=== PATIENT | male | born 1990 | race Caucasian/White ===

== ENCOUNTER 2017-06-22 21:02 | Emergency (ER) | payer SELFPAY ==
[2017-06-22] MEDS ORDERED: NORMAL SALINE 1000 ML 1,000 ML IV ONE (21:42)
[2017-06-22] MEDS ORDERED: DIAZEPAM INJ 10 MG/2 ML DISP.SYRIN IV ONE (21:44)
--- NOTE | 2017-06-22 21:45 | ER Document Report ---
ED General - General Chief Complaint: Probable Seizure Stated Complaint: ALTERED MENTAL STATUS Time Seen by Provider: 06/22/17 21:09 Notes: Patient is a 26-year-old male with a past medical history of polysubstance abuse currently uses kratom daily who presents after having a witnessed generalized tonic-clonic seizure just prior to arrival. Patient was apparently speaking to his significant other when he became confused, and had generalized shaking. He did not injure himself when he landed on the ground. He arrives somewhat postictal, apparently initially combative for EMS but calm down in route to the hospital. On arrival, patient states he does not know what happened, denies having any prodromal symptoms prior to this event. He states that he has been taking large doses of kratom daily for at least the past 2 years and has withdrawal symptoms when he tries to stop this medicine. He has used the same dose today as he has usually used. He does also admit to intermittent Xanax abuse but states that he has not used in at least 4 days and generally does not use more than 1-2 times per week. No obvious additional triggers or today's episode. He has no prior history of seizures. He denies any focal weakness, numbness, headache, neck pain, or altered mental status. He denies any recent infectious symptoms or fever. TRAVEL OUTSIDE OF THE [place] IN LAST 30 DAYS: No - Related Data Allergies/Adverse Reactions: No Known Allergies Allergy (Verified 08/14/14 01:19) Past Medical History - General Information source: Patient - Social History Smoking Status: Current Every Day Smoker Frequency of alcohol use: Occasional Drug Abuse: Other Lives with: Spouse/Significant other Family History: Reviewed & Not Pertinent - Immunizations Hx Diphtheria, Pertussis, Tetanus Vaccination: Yes Review of Systems - Review of Systems Notes: Constitutional: Negative for fever. HENT: Negative for sore throat. Eyes: Negative for visual changes. Cardiovascular: Negative for chest pain. Respiratory: Negative for shortness of breath. Gastrointestinal: Negative for abdominal pain, vomiting or diarrhea. Genitourinary: Negative for dysuria. Musculoskeletal: Negative for back pain. Skin: Negative for rash. Neurological: Negative for headaches, weakness or numbness. 10 point ROS negative except as marked above and in HPI. Physical Exam - Vital signs Vitals: Resp 17 06/22/17 21:06 Interpretation: Normal Notes: PHYSICAL EXAMINATION: GENERAL: Well-appearing, well-nourished and in no acute distress. HEAD: Atraumatic, normocephalic. EYES: Pupils equal round and reactive to light, extraocular movements intact, sclera anicteric, conjunctiva are normal. ENT: nares patent, oropharynx clear without exudates. Moist mucous membranes. NECK: Normal range of motion, supple without lymphadenopathy LUNGS: Breath sounds clear to auscultation bilaterally and equal. No wheezes rales or rhonchi. HEART: Regular rate and rhythm without murmurs ABDOMEN: Soft, nontender, normoactive bowel sounds. No guarding, no rebound. No masses appreciated. EXTREMITIES: Normal range of motion, no pitting or edema. No cyanosis. NEUROLOGICAL: Face symmetric. Tongue protrudes midline. Extraocular motions intact. Pupils are 2 mm and equally reactive. Normal speech, normal gait. 5 out of 5 strength in both the distal and proximal upper and lower extremities bilaterally. Sensation is grossly intact throughout. Finger to nose testing normal. Pronator drift normal. PSYCH: Normal mood, normal affect. SKIN: Warm, Dry, normal turgor, no rashes or lesions noted. Course - Re-evaluation Re-evalutation: 06/22/17 21:44 Patient presents after having a generalized tonic-clonic seizure likely secondary to his chronic use of a drug product known as "kratom". Patient states he uses a 3-4 times daily and has used it 3 times a day. This drug is known to cause seizures with frequent use and patient has no other obvious triggers for seizure today. He has not had any recent head trauma, denies any infectious symptoms to suggest an acute meningitis or encephalitis, and although he does abuse benzodiazepines states he has not used any benzos with the past 4-5 days and usually only uses 1-2 mg of Xanax at most per week. I think it is unlikely that he would have an acute benzodiazepine withdrawal seizure especially because he is not exhibiting any additional withdrawal symptoms of benzodiazepines here in the emergency department. A CT the head has been obtained given that this was patient's first seizure to evaluate for any evidence of a structural abnormality or intracranial bleed. 06/22/17 22:17 CT the head unremarkable. Patient has not had any additional episodes of seizures. This is consistent with a kratom induced seizure. I have encouraged cessation of this drug use and I have encouraged the patient to seek rehab. Patient also does admit to chronic depression and anxiety and have encouraged him to seek actual medical therapy for this condition as opposed to continuing to try to use illicit substances to manage his symptoms. At this time will discharge with return precautions and follow-up recommendations. Verbal discharge instructions given a the bedside and opportunity for questions given. Medication warnings reviewed. Patient is in agreement with this plan and has verbalized understanding of return precautions and the need for primary care follow-up in the next 24-72 hours. - Vital Signs Vital signs: Temp Pulse Resp BP Pulse Ox 98.4 F 18 134/80 H 97 06/22/17 21:19 06/22/17 22:05 06/22/17 22:05 06/22/17 22:04 - Diagnostic Test Radiology reviewed: Image reviewed, Reports reviewed Radiology results interpreted by me: 06/22/17 22:17 CT head: No acute intracranial bleed or mass Discharge - Discharge Clinical Impression: Seizure, kratom abuse Condition: Good Disposition: HOME, SELF-CARE Additional Instructions: Today you had a seizure. It is very important that you do not engage in any activities that could result in severe injury should you have a seizure. Specifically, do not drive a vehicle, go into a body of water, take a bath, climb ladders, or operate any heavy machinery until you have been cleared by your neurologist. Your seizure was likely due to your use of kratom. Please discontinue using this drug. Please return to the ED immediately if you have multiple seizures close together, develop a severe headache, weakness, numbness , difficulty speaking, have a seizure in which you do not return to normal within 1 hour of the seizure, or have any other symptoms that are concerning to you. Forms: Return to Work
--- NOTE | 2017-06-22 22:06 | RADIOLOGY REPORT (SQ) ---
EXAM DESCRIPTION: CT HEAD WITHOUT COMPLETED DATE/TIME: 06/22/2017 9:53 pm REASON FOR STUDY: seizure COMPARISON: None. TECHNIQUE: Axial images acquired through the brain without intravenous contrast. Images reviewed wi th bone, brain and subdural windows. Images stored on PACS. All CT scanners at this facility use dose modulation, iterative reconstruction, and/or weight based d osing when appropriate to reduce radiation dose to as low as reasonably achievable (ALARA). [facility]: Dose Right [facility]: CareDose [facility]: Dose Right [facility]: Teradose 4D [facility]: [facility] [employer] RADIATION DOSE: CT Rad equipment meets quality standard of care and radiation dose reduction techniq ues were employed. CTDIvol: 64.6 mGy. DLP: 1292 mGy-cm. mGy. LIMITATIONS: None. FINDINGS: VENTRICLES: Normal size and contour. CEREBRUM: No masses. No hemorrhage. No midline shift. No evidence for acute infarction. Normal gra y/white matter differentiation. No areas of low density in the white matter. CEREBELLUM: No masses. No hemorrhage. No alteration of density. No evidence for acute infarction. EXTRAAXIAL SPACES: No fluid collections. No masses. ORBITS AND GLOBE: No intra- or extraconal masses. Normal contour of globe without masses. CALVARIUM: No fracture. PARANASAL SINUSES: No fluid or mucosal thickening. SOFT TISSUES: No mass or hematoma. OTHER: No other significant finding. IMPRESSION: NORMAL BRAIN CT WITHOUT CONTRAST. EVIDENCE OF ACUTE STROKE: NO. COMMENT: Quality ID # [id number]: Final reports with documentation of one or more dose reduction techniques (e.g., Automated exposure control, adjustment of the mA and/or kV according to patient size, use of iterative reconstruction technique) TECHNICAL DOCUMENTATION: JOB ID: [id number] All Rights Reserved
[2017-06-22 22:23] VITALS: BP 134/80
--- NOTE | 2017-06-23 08:03 | EKG REPORT ---
SEVERITY:- BORDERLINE ECG - SINUS TACHYCARDIA PROBABLE LEFT ATRIAL ABNORMALITY : Confirmed by: Patric Rankin MD 23-Jun-2017 08:02:43
== END 2017-06-22 22:49 | disposition home or self-care (01) ==
LOC: ER 21:02
DX: R56.9 Unspecified convulsions (principal); F19.10 Other psychoactive substance abuse, uncomplicated; R41.82 Altered mental status, unspecified; F17.200 Nicotine dependence, unspecified, uncomplicated
CPT/HCPCS: 93005; 99285; 96374; 70450; 93010; J3360; J7030

== ENCOUNTER 2018-01-24 01:24 | Emergency (ER) | payer SELFPAY ==
[2018-01-24] MEDS ORDERED: DIAZEPAM 5 MG TABLET PO ONE (02:21)
--- NOTE | 2018-01-24 02:24 | ER Document Report ---
ED Seizure - General Chief Complaint: Probable Seizure Stated Complaint: POSSIBLE SEIZURE Time Seen by Provider: 01/24/18 01:58 Notes: The patient is a 27-year-old male past medical history polysubstance abuse, presents after a brief generalized seizure that was witnessed by a friend. When EMS arrived, he is back to baseline his Accu-Chek was normal. Patient said he left detox 3 days ago and began to use Suboxone, methamphetamine and Xanax bars. Thinks he had benzodiazepine withdrawal seizure is his last use was 2 days ago. He is no longer having seizures and is back to baseline. Denies head injury, fevers, neck stiffness or focal weakness or numbness. - Related Data Allergies/Adverse Reactions: No Known Allergies Allergy (Verified 08/14/14 01:19) Past Medical History - General Information source: Patient - Social History Smoking Status: Current Every Day Smoker Chew tobacco use (# tins/day): No Frequency of alcohol use: Social Drug Abuse: Heroin, Methamphetamine, Prescription drugs Family History: Reviewed & Not Pertinent Patient has suicidal ideation: No Patient has homicidal ideation: No Renal/ Medical History: Denies: Hx Peritoneal Dialysis - Immunizations Hx Diphtheria, Pertussis, Tetanus Vaccination: Yes Review of Systems - Review of Systems Notes: REVIEW OF SYSTEMS: CONSTITUTIONAL: -fevers, -chills EENT: -eye pain, -difficulty swallowing, -nasal congestion CARDIOVASCULAR: -chest pain, -syncope. RESPIRATORY: -cough, -SOB GASTROINTESTINAL: -abdominal pain, -nausea, -vomiting, -diarrhea GENITOURINARY: -dysuria, -hematuria MUSCULOSKELETAL: -back pain, -neck pain SKIN: -rash or skin lesions. HEMATOLOGIC: -easy bruising or bleeding. LYMPHATIC: -swollen, enlarged glands. NEUROLOGICAL: -altered mental status or loss of consciousness, -headache, - neurologic symptoms, +seizure PSYCHIATRIC: -anxiety, -depression. ALL OTHER SYSTEMS REVIEWED AND NEGATIVE. Physical Exam - Vital signs Vitals: Temp Pulse Resp BP Pulse Ox 98.2 F 97 18 138/87 H 98 01/24/18 01:55 01/24/18 01:55 01/24/18 01:55 01/24/18 01:55 01/24/18 01:55 - Notes Notes: PHYSICAL EXAMINATION: GENERAL: Well-appearing, well-nourished and in no acute distress. HEAD: Atraumatic, normocephalic. EYES: Pupils equal round and reactive to light, extraocular movements intact, sclera anicteric, conjunctiva are normal. ENT: nares patent, oropharynx clear without exudates. Moist mucous membranes. NECK: Normal range of motion, supple without lymphadenopathy LUNGS: Breath sounds clear to auscultation bilaterally and equal. No wheezes rales or rhonchi. HEART: Regular rate and rhythm without murmurs ABDOMEN: Soft, nontender, normoactive bowel sounds. No guarding, no rebound. No masses appreciated. EXTREMITIES: Normal range of motion, no pitting or edema. No cyanosis. NEUROLOGICAL: Cranial nerves grossly intact. Normal speech, normal gait. Normal sensory and motor exams. PSYCH: Normal mood, normal affect. SKIN: Warm, Dry, normal turgor, no rashes or lesions noted. Course - Re-evaluation Re-evalutation: Patient appears well and back to baseline after a brief seizure. He thinks it was due to benzodiazepine withdrawal, because he has not had seizures after he uses Xanax bars. There are no signs of benzodiazepine withdrawal at this time. Provided him with a taper of Librium as an outpatient with follow-up at detox again. - Vital Signs Vital signs: Temp Pulse Resp BP Pulse Ox 98.2 F 97 18 138/87 H 98 01/24/18 01:55 01/24/18 01:55 01/24/18 01:55 01/24/18 01:55 01/24/18 01:55 Discharge - Discharge Clinical Impression: Seizure Condition: Stable Disposition: HOME, SELF-CARE Additional Instructions: Seizure You have had a seizure. Seizure disorders (epilepsy) of one sort or another affect about one out of 50 people. The seizure occurs because of abnormal electrical activity in the brain. Seizures may be due to drugs and alcohol, strokes, brain injury, or infection. In the most common form of epilepsy, no cause can be found. You will require further evaluation to determine the cause of your seizure, and to determine whether anti-seizure medication is required. This follow-up testing is important, so please call us if you encounter problems with scheduling of tests or appointments. YOU SHOULD NOT DRIVE until released to do so by your physician. The law requires that seizures be reported to the day haul or farm charter bus driver's license bureau--a seizure while driving could be catastrophic. Call the doctor if seizures recur, or if you develop new symptoms such as fever, severe headache, stiff neck, confusion or increasing sleepiness, weakness or numbness, or visual problems. Prescriptions: Chlordiazepoxide HCl [Librium 25 mg Capsule] 1 cap PO QID 8 Days capsule Forms: Elevated Blood Pressure Referrals: [facility] [Outside] - Follow up as needed
[2018-01-24 02:31] VITALS: BP 130/79
[2018-01-24 02:44] LABS: APPEARANCE,URINE CLEAR; BILIRUBIN,URINE NEGATIVE (NEGATIVE); COLOR,URINE YELLOW; GLUCOSE, URINE NEGATIVE (NEGATIVE); KETONES,URINE NEGATIVE (NEGATIVE); LEUKOCYTE ESTERASE,URINE NEGATIVE (NEGATIVE); NITRITE,URINE NEGATIVE (NEGATIVE); PROTEIN,URINE NEGATIVE (NEGATIVE); URINE SPECIFIC GRAVITY 1.015; UROBILINOGEN,URINE NEGATIVE mg/dL (<2.0)
[2018-01-24 03:02] LABS: URINE BARBITURATES SCREEN NEGATIVE; URINE BENZODIAZEPINES SCREEN UNCONFIRMED POSITIVE; URINE COCAINE SCREEN NEGATIVE; URINE MARIJUANA (THC) SCREEN NEGATIVE; URINE METHADONE SCREEN NEGATIVE; URINE PHENCYCLIDINE SCREEN NEGATIVE
== END 2018-01-24 02:41 | disposition home or self-care (01) ==
LOC: ER 01:24
DX: R56.9 Unspecified convulsions (principal); F19.10 Other psychoactive substance abuse, uncomplicated; F11.10 Opioid abuse, uncomplicated; F17.200 Nicotine dependence, unspecified, uncomplicated
CPT/HCPCS: 80307; 81001; 99284

== ENCOUNTER 2018-05-11 17:50 | Emergency (ER) | payer SELFPAY ==
--- NOTE | 2018-05-11 18:36 | ER Document Report ---
ED Medical Screen (RME) - General Chief Complaint: Drug Abuse Stated Complaint: REQUESTING DETOX Time Seen by Provider: 05/11/18 18:27 Mode of Arrival: Ambulatory Information source: Patient Notes: 27-year-old male presents emergency department requesting detox from heroin. Patient states that he last used heroin yesterday around 11 PM. He states over the last day he has been having nausea, vomiting, diarrhea, hallucinations, delusions. He's been seeing his friends who aren't around. Patient states that he is feeling depressed and he has been wishing that he was . Patient denies any actual suicidal ideations. He does not have any plan to hurt himself. He denies any homicidal ideations. I have greeted and performed a rapid initial assessment of this patient. A comprehensive ED assessment and evaluation of the patient, analysis of test results and completion of the medical decision making process will be conducted by additional ED providers. PHYSICAL EXAMINATION: GENERAL: Well-appearing, well-nourished and in no acute distress. HEAD: Atraumatic, normocephalic. EYES: Pupils equal round extraocular movements intact, conjunctiva are normal. ENT: Nares patent NECK: Normal range of motion LUNGS: No respiratory distress Musculoskeletal: Normal range of motion NEUROLOGICAL: Normal speech, normal gait. PSYCH: depressed. delusions, hallucinations. SKIN: Warm, Dry, normal turgor, no rashes or lesions noted. TRAVEL OUTSIDE OF THE [place] IN LAST 30 DAYS: No - Related Data Allergies/Adverse Reactions: No Known Allergies Allergy (Verified 08/14/14 01:19) Past Medical History - Social History Chew tobacco use (# tins/day): No Frequency of alcohol use: Social Drug Abuse: Heroin, Methamphetamine, Prescription drugs Renal/ Medical History: Denies: Hx Peritoneal Dialysis - Immunizations Hx Diphtheria, Pertussis, Tetanus Vaccination: Yes Physical Exam - Vital signs Vitals: Temp Pulse Resp BP Pulse Ox 98.7 F 110 H 18 124/85 100 05/11/18 17:55 05/11/18 17:55 05/11/18 17:55 05/11/18 17:55 05/11/18 17:55 Course - Vital Signs Vital signs: Temp Pulse Resp BP Pulse Ox 98.7 F 110 H 18 124/85 100 05/11/18 17:55 05/11/18 17:55 05/11/18 17:55 05/11/18 17:55 05/11/18 17:55
[2018-05-11 19:04] LABS: APPEARANCE,URINE CLEAR; BILIRUBIN,URINE NEGATIVE (NEGATIVE); COLOR,URINE YELLOW; GLUCOSE, URINE NEGATIVE (NEGATIVE); KETONES,URINE 80 mg/dL (NEGATIVE); LEUKOCYTE ESTERASE,URINE NEGATIVE (NEGATIVE); NITRITE,URINE NEGATIVE (NEGATIVE); PROTEIN,URINE 30 mg/dL (NEGATIVE); URINE SPECIFIC GRAVITY 1.027; UROBILINOGEN,URINE NEGATIVE mg/dL (<2.0)
[2018-05-11 19:05] LABS: ABSOLUTE BASOPHILS # (AUTO) 0.1 10^3/uL (0.0-0.2); ABSOLUTE LYMPHOCYTES (AUTO) 1.7 10^3/uL (0.5-4.7); ABSOLUTE MONOCYTES (AUTO) 0.8 10^3/uL (0.1-1.4); ABSOLUTE NEUT (AUTO) 6.4 10^3/uL (1.7-8.2); BASOPHILS % (AUTO) 1.2 % (0-2); EOSINOPHILS % (AUTO) 0.5 % (0-6); HEMATOCRIT 48.5 % (37.9-51.0); LYMPHOCYTES % (AUTO) 18.9 % (13-45); MEAN CORPUSCULAR HEMOGLOBIN 29.5 pg (27.0-33.4); MEAN CORPUSCULAR HGB CONC 35.1 g/dL (32.0-36.0); MEAN CORPUSCULAR VOLUME 84 fl (80-97); MONOCYTES % (AUTO) 9.1 % (3-13); PLATELET COUNT 318 10^3/uL (150-450); RED BLOOD COUNT 5.77 10^6/uL (4.35-5.55); RED CELL DISTRIBUTION WIDTH 14.3 % (11.5-14.0); SEGMENTED NEUTROPHILS % (AUTO) 70.3 % (42-78); TOTAL CELLS COUNTED % (AUTO) 100 %; WHITE BLOOD COUNT 9.2 10^3/uL (4.0-10.5)
[2018-05-11 19:18] LABS: URINE BARBITURATES SCREEN NEGATIVE; URINE BENZODIAZEPINES SCREEN UNCONFIRMED POSITIVE; URINE COCAINE SCREEN NEGATIVE; URINE MARIJUANA (THC) SCREEN NEGATIVE; URINE METHADONE SCREEN NEGATIVE; URINE PHENCYCLIDINE SCREEN NEGATIVE
[2018-05-11 19:27] LABS: ALANINE AMINOTRANSFERASE 34 U/L (21-72); ALBUMIN 5.3 g/dL (3.5-5.0); ALKALINE PHOSPHATASE 85 U/L (38-126); ANION GAP 17 (5-19); ASPARTATE AMINO TRANSFERASE 35 U/L (17-59); BILIRUBIN,DIRECT 0.4 mg/dL (0.0-0.4); BLOOD UREA NITROGEN 17 mg/dL (7-20); CALCIUM 10.2 mg/dL (8.4-10.2); CARBON DIOXIDE 24 mmol/L (22-30); CHLORIDE 100 mmol/L (98-107); GLUCOSE 98 mg/dL (75-110); POTASSIUM 4.1 mmol/L (3.6-5.0); SODIUM 140.5 mmol/L (137-145); TOTAL PROTEIN 9.6 g/dL (6.3-8.2)
[2018-05-11 19:30] LABS: ACETAMINOPHEN < 10 ug/mL (10-30); ALCOHOL < 10 mg/dL (NONE DETECTED); SALICYLATE < 1.0 mg/dL (2.0-20.0)
[2018-05-11] MEDS ORDERED: LORAZEPAM 1 MG TABLET PO ONE (19:48)
--- NOTE | 2018-05-12 08:05 | ER Document Report ---
Addendum entered and electronically signed by JIM BANKS LCSWA 05/12/18 09: 47: Discharge - Discharge Clinical Impression: Substance abuse Condition: Stable Disposition: HOME, SELF-CARE Additional Instructions: You have been evaluated by both medical and behavioral health teams and have been deemed appropriate for discharge. You have been provided resource information for area detox facilities. You are recommended to follow-up with [facility], [facility], for continued assistance in finding detox and outpatient substance abuse treatment. NARCOTIC / OPIOD ABUSE: Narcotics and opiods are pain-relieving drugs that are often abused. They are addicting. Narcotics cause euphoria, but it often takes increasing amounts to "feel good" and avoid withdrawal symptoms. Overdose of narcotics causes small pupils, coma, and decreased breathing. It's a common cause of . Purity of street narcotics is unpredictable. Injection of narcotics is risky for abscesses, endocarditis (heart infection), pneumonia, and AIDS. Withdrawal from narcotics causes goose bumps, watery mouth, sweating, nasal congestion, muscle aches, abdominal cramps, vomiting, and diarrhea. There 's often restlessness and confusion. Treatment programs are available, but you must make the decision to quit. Medication (such as clonidine) can be prescribed to control the symptoms of withdrawal. AMPHETAMINE / METHAMPHETAMINE ABUSE: Amphetamines are addicting stimulants. Amphetamines overstimulate the nervous system and give a false feeling of power and mastery. These drugs may be obtained as prescription pills for weight loss, narcolepsy, or attention- deficit disorder. More often they're bought as an illegal street drug, methamphetamine (crank, crystal, speed). Using amphetamines repeatedly can lead to serious medical problems including malnutrition, severe depression, and paranoia. It can take increasing amounts to feel good. Eventually, there will be a "burn out." When you go off amphetamines there is a period of depression that may last for weeks or even months. High doses of amphetamines can cause seizures, confusion, hallucinations, delusions, high blood pressure, muscle damage, heart damage, or sudden . Many times these deadly complications occur even with "normal" doses. Injection of amphetamines is risky for developing abscesses, endocarditis ( heart infection), pneumonia, and AIDS. Withdrawal from amphetamines often causes anxiety, depression, and drug cravings. Some users become paranoid and psychotic. There may be cramps, nausea , and vomiting. Many treatment programs are available, but you must make the decision to quit. Medication can be prescribed to control the symptoms of amphetamine toxicity (beta blockers or benzodiazepines). Withdrawal symptoms may require tranquilizers. FOLLOW-UP CARE: If you experience worsening or a significant change in your symptoms, notify the physician immediately or return to the Emergency Department at any time for re-evaluation. Referrals: [facility] [Outside] - 05/12/18 [facility] [Outside] - Follow up in 3-5 days Original Note: ED Substance Abuse / Acc. OD - General Mode of Arrival: Ambulatory Information source: Patient TRAVEL OUTSIDE OF THE [place] IN LAST 30 DAYS: No - HPI Patient complains to provider of: Drug abuse Onset: Other - He relapsed approximately 3 weeks ago but is been worse the last couple of days. Onset/Duration: Gradual, Worse Quality of pain: Other - Little shaky Severity: Mild Pain Level: 1 Associated Symptoms: Other - Little shakiness Similar symptoms previously: Yes Recently seen / treated by doctor: No <JESSY JOHNSON - Last Filed: 05/12/18 08:00> <CHERRY ZAMARRIPA - Last Filed: 05/12/18 09:10> <JIM BANKS - Last Filed: 05/12/18 09:45> <DOMINICK PARTIDA - Last Filed: 05/12/18 10:42> - General Chief Complaint: Drug Abuse Stated Complaint: REQUESTING DETOX Time Seen by Provider: 05/11/18 18:27 Notes: Patient is a 27-year-old male comes to the emergency room on his own accord requesting detox from heroin. Patient states she has been using since he was 17 years old he has been in and out of some rehab's most recent one was approximately 6 months ago. And he states that he does well when he was in rehab when he comes home some trigger start him off again and he cannot stop himself. He states he has been living in the [facility] for the past 5 days and he cannot sleep another night in the [facility]. He does state that he has had a girlfriend he informs me that he does not want her to know what is going on when he is kind of left. Patient also states besides injectable heroin he does do injectable meth when he can find it. He states he is tired of feeling lousy all the time and wants to try again to kick the habits. He states the last trigger was the fact that he was living next door to the drug dealer. Patient denies any alcohol but does smoke a pack of cigarettes a day. His last place he went to was [facility]. (JESSY JOHNSON) - Related Data Allergies/Adverse Reactions: No Known Allergies Allergy (Verified 08/14/14 01:19) Past Medical History - Social History Smoking Status: Current Every Day Smoker Cigarette use (# per day): Yes - Pack a day Chew tobacco use (# tins/day): No Smoking Education Provided: No Frequency of alcohol use: Rare Drug Abuse: Heroin, Methamphetamine, Prescription drugs Family History: Reviewed & Not Pertinent Patient has suicidal ideation: No Patient has homicidal ideation: No Renal/ Medical History: Denies: Hx Peritoneal Dialysis - Immunizations Hx Diphtheria, Pertussis, Tetanus Vaccination: Yes <JESSY JOHNSON - Last Filed: 05/12/18 08:00> Review of Systems - Review of Systems Constitutional: Chills, Weakness EENT: No symptoms reported Cardiovascular: No symptoms reported Respiratory: No symptoms reported Gastrointestinal: No symptoms reported Genitourinary: No symptoms reported Male Genitourinary: No symptoms reported Musculoskeletal: No symptoms reported Skin: No symptoms reported Hematologic/Lymphatic: No symptoms reported Neurological/Psychological: Anxiety -: Yes All other systems reviewed and negative <JESSY JOHNSON - Last Filed: 05/12/18 08:00> Physical Exam - Vital signs Interpretation: Tachycardic - General General appearance: Alert, Anxious - HEENT Head: Normocephalic, Atraumatic Eyes: Normal Ears: Normal External canal: Normal Tympanic membrane: Normal. No: Bulging, Hemotympanum, Perforation Sinus: Normal Nasal: Normal Mouth/Lips: Normal Mucous membranes: Normal, Moist Pharynx: Normal. No: Blood in hypopharynx, Erythema, Exudate, Peritonsillar abscess, Post nasal drainage, Retropharyngeal abscess, Tonsillar hypertrophy, Uvular edema, Potential airway comprom. Neck: Supple. No: Anterior cervical chain, Posterior cervical chain, Brudzinski , Carotid bruit, Kernig's, Lymphadenopathy, Meningismus, Neck mass, Shotty nodes , Subcutaneous emphysema, Thyroid nodule - Respiratory Respiratory status: No respiratory distress Chest status: Nontender Breath sounds: Normal. No: Rales, Rhonchi, Stridor, Wheezing Chest palpation: Normal - Cardiovascular Rhythm: Tachycardia Heart sounds: Normal auscultation Murmur: No - Abdominal Inspection: Normal Distension: No distension Bowel sounds: Normal Tenderness: Nontender Organomegaly: No organomegaly - Extremities General upper extremity: Normal color, Normal ROM, Normal strength, Other - Examination patient's upper extremities shows that he has a few track david mostly in the right antecubital and left antecubital area. But mostly on the right side. There is no sign of infection on any of the sites that I inspected.. No: Tender, Edema General lower extremity: Normal inspection - Neurological Neuro grossly intact: Yes Cognition: Normal Orientation: AAOx4 Shantal Coma Scale Eye Opening: Spontaneous [place] Coma Scale Verbal: Oriented Sh[place]al Coma Scale Motor: Obeys Commands [place] Coma Scale Total: 15 Speech: Normal - Skin Skin Temperature: Warm <JESSY JOHNSON - Last Filed: 05/12/18 08:00> <CHERRY ZAMARRIPA - Last Filed: 05/12/18 09:10> <JIM BANKS - Last Filed: 05/12/18 09:45> <DOMINICK PARTIDA - Last Filed: 05/12/18 10:42> - Vital signs Vitals: Temp Pulse Resp BP Pulse Ox 98.7 F 110 H 18 124/85 100 05/11/18 17:55 05/11/18 17:55 05/11/18 17:55 05/11/18 17:55 05/11/18 17:55 - Notes Notes: Patient is a well-nourished well-developed male who is in no apparent distress at present. Does appear to be somewhat anxious slightly jittery but again no distress (JESSY JOHNSON) Course - Laboratory Result Diagrams: 05/11/18 18:45 05/11/18 18:45 <JESSY JOHNSON - Last Filed: 05/12/18 08:00> - Laboratory Result Diagrams: 05/11/18 18:45 05/11/18 18:45 <CHERRY ZAMARRIPA - Last Filed: 05/12/18 09:10> <JIM BANKS - Last Filed: 05/12/18 09:45> - Laboratory Result Diagrams: 05/11/18 18:45 05/11/18 18:45 <DOMINICK PARTIDA - Last Filed: 05/12/18 10:42> - Re-evaluation Re-evalutation: 05/12/18 08:12 Patient was to be reevaluated this morning by psych does see if there was any intervention they could come up with. The only thing I did with the patient last night was allow him a 1 mg Ativan by mouth which seemed to calm him down most of the night. We are waiting on them to decide which way they would like to go. I have introduced Cherry the daytime QA TEST LEAD to the patient and she has had a discussion with him as well I will be turning care over to her until he can be reevaluated by the psych physician. (JESSY JOHNSON) 05/12/18 07:10 Assumed care of the patient. He is yawning. He states he has no willpower over the heroin. If he has money he goes to his next door neighbor to buy it. He wants to go to detox. Psych will be seeing him this morning. He does not have any needs at this time. (CHERRY ZAMARRIPA) - Vital Signs Vital signs: Temp Pulse Resp BP Pulse Ox 98.7 F 80 18 139/79 H 99 05/12/18 08:35 05/12/18 08:35 05/11/18 17:55 05/12/18 08:35 05/12/18 08:35 - Laboratory Laboratory results interpreted by me: 05/11/18 05/11/18 05/11/18 18:45 18:45 18:45 RBC 5.77 H RDW 14.3 H Total Protein 9.6 H Albumin 5.3 H Urine Protein 30 H Urine Ketones 80 H Salicylates < 1.0 L Acetaminophen < 10 L Discharge <JESSY JOHNSON - Last Filed: 05/12/18 08:00> <CHERRY ZAMARRIPA - Last Filed: 05/12/18 09:10> <JIM BANKS - Last Filed: 05/12/18 09:45> <DOMINICK PARTIDA - Last Filed: 05/12/18 10:42> - Discharge Clinical Impression: Substance abuse Condition: Stable Disposition: HOME, SELF-CARE Additional Instructions: You have been evaluated by both medical and behavioral health teams and have been deemed appropriate for discharge. You have been provided resource information for area detox facilities. You are recommended to follow-up with [facility], [facility], for continued assistance in finding detox and outpatient substance abuse treatment. NARCOTIC / OPIOD ABUSE: Narcotics and opiods are pain-relieving drugs that are often abused. They are addicting. Narcotics cause euphoria, but it often takes increasing amounts to "feel good" and avoid withdrawal symptoms. Overdose of narcotics causes small pupils, coma, and decreased breathing. It's a common cause of . Purity of street narcotics is unpredictable. Injection of narcotics is risky for abscesses, endocarditis (heart infection), pneumonia, and AIDS. Withdrawal from narcotics causes goose bumps, watery mouth, sweating, nasal congestion, muscle aches, abdominal cramps, vomiting, and diarrhea. There 's often restlessness and confusion. Treatment programs are available, but you must make the decision to quit. Medication (such as clonidine) can be prescribed to control the symptoms of withdrawal. AMPHETAMINE / METHAMPHETAMINE ABUSE: Amphetamines are addicting stimulants. Amphetamines overstimulate the nervous system and give a false feeling of power and mastery. These drugs may be obtained as prescription pills for weight loss, narcolepsy, or attention- deficit disorder. More often they're bought as an illegal street drug, methamphetamine (crank, crystal, speed). Using amphetamines repeatedly can lead to serious medical problems including malnutrition, severe depression, and paranoia. It can take increasing amounts to feel good. Eventually, there will be a "burn out." When you go off amphetamines there is a period of depression that may last for weeks or even months. High doses of amphetamines can cause seizures, confusion, hallucinations, delusions, high blood pressure, muscle damage, heart damage, or sudden . Many times these deadly complications occur even with "normal" doses. Injection of amphetamines is risky for developing abscesses, endocarditis ( heart infection), pneumonia, and AIDS. Withdrawal from amphetamines often causes anxiety, depression, and drug cravings. Some users become paranoid and psychotic. There may be cramps, nausea , and vomiting. Many treatment programs are available, but you must make the decision to quit. Medication can be prescribed to control the symptoms of amphetamine toxicity (beta blockers or benzodiazepines). Withdrawal symptoms may require tranquilizers. FOLLOW-UP CARE: If you experience worsening or a significant change in your symptoms, notify the physician immediately or return to the Emergency Department at any time for re-evaluation. Referrals: [facility] [Outside] - Follow up in 3-5 days [facility] [Outside] - 05/12/18
--- NOTE | 2018-05-12 08:10 | EKG REPORT ---
SEVERITY:- NORMAL ECG - SINUS RHYTHM ST ELEV, PROBABLE NORMAL EARLY REPOL PATTERN : Confirmed by: Patric Rankin MD 12-May-2018 08:09:57
--- NOTE | 2018-05-12 09:27 | ER Document Report ---
Doctor's Note Notes: 05/12/18 09:27 This is a 27-year-old man with a history of heroin dependence who presented yesterday requesting detox. His vital signs and labs have been stable. He is currently awaiting psychiatric evaluation.
--- NOTE | 2018-05-12 10:37 | PSYCHOLOGICAL NOTE ---
Psych Note - Psych Note Date seen by psych provider: 05/12/18 Time seen by psych provider: 07:35 Psych Note: Reason for consult: substance abuse Pt is a 27 yom who presents to the ER with a CC of heroin withdrawal. Pt has a history of polysubstance abuse, hepatits C, and seizures. Pt reports he uses IV heroin, methamphetamine, and prescription drugs (xanax/percocet). Patient disclosed that he arrived to [facility] ED via his friend's car. He reports he came to [facility] because of "detox symptoms help finding detox." He disclosed that he has been to a "couple of them"... But was unable to remember an exact amount. He states that he has been "a couple months back" since he had last been to detox. Patient reports that his drug of choice is heroin however he will use anything he can get a hold of and reports that just recently he used heroin and methamphetamine. He disclosed that he can go a couple weeks or months not shooting up abruptly use other drugs however once in a while he will "get money that my girlfriend know about it and binge." He disclosed that his girlfriend found out that he was "shooting up again" and kicked him out of their home. The last 5 days he has been in the [place] which encompassed both binging on drugs and then starting withdrawal symptoms. Patient denies thoughts of wanting to harm himself And confirms that he has been to outpatient substance abuse treatment in the past approximately 5 years ago in successfully was on Suboxone however is not followed through with outpatient services since then. Behavior health team contacted the [facility]; currently there are no beds available. Patient is alert and orientated to person, place, time and circumstance. Mood is euthymic with congruent affect. She denies suicidal and homicidal ideation. Delusions are absent behaviors congruent with an intact reality based presentation i.e. organized and linear thought process. Eye contact was well- maintained. Conversational speech was within normal rate, tone and prosody. Intellectual abilities appear to be within the average range. Attention and concentration were good. Insight, judgment, impulse control are fair. 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 Patient does not meet IVC criteria per [place] GS 122C; he denies suicidal and homicidal ideation. Patient reports wanting assistance with detox. There are currently no beds at the [facility]. Patient is recommended to follow-up with [facility] for continued assistance in obtaining detox and substance abuse treatment services. Patient has been provided [facility] information also. Dr. Cruz was consulted and the care management this patient; attending physician is agreement with recommendations and disposition.
[2018-05-12 11:27] VITALS: BP 124/86
== END 2018-05-12 10:55 | disposition home or self-care (01) ==
LOC: ER 17:50
DX: F11.10 Opioid abuse, uncomplicated (principal); F15.10 Other stimulant abuse, uncomplicated; F17.210 Nicotine dependence, cigarettes, uncomplicated; R68.83 Chills (without fever); R53.1 Weakness; F41.9 Anxiety disorder, unspecified; R00.0 Tachycardia, unspecified
CPT/HCPCS: 36415; 80053; 80307; 81001; 85025; 93005; 93010; 99284